=== PATIENT | female | born 1965 | race Native Hawaiian/Other Pacific Islander ===

== ENCOUNTER 2016-09-27 09:36 | Outpatient (CLI) | payer OTHER ==
[~2016-09-27 09:36] MED LIST: ATEN50TA36 PO; CIPRO500 MG PO; HYDR25TA60 PO; Z-PAK PO
== END 2016-09-27 20:00 | disposition home or self-care (01) ==
LOC: RAD 09:36
DX: C34.90 Malignant neoplasm of unspecified part of unspecified bronchus or lung (principal)

== ENCOUNTER 2016-10-11 08:34 | Outpatient (CLI) | payer OTHER | END 2016-10-11 19:04 | disposition home or self-care (01) | LOC: MAMMO 08:34 | DX: Z12.31 Encounter for screening mammogram for malignant neoplasm of breast (principal); Z13.820 Encounter for screening for osteoporosis | CPT/HCPCS: G0202-TC ==

== ENCOUNTER 2017-12-15 09:39 | Outpatient (CLI) | payer OTHER ==
[2017-12-15 10:27] LABS: PLATELET COUNT 221 K/uL (152-353)
[2017-12-15 10:50] LABS: POTASSIUM 4.6 mmol/L (3.6-5.2)
== END 2017-12-15 19:57 | disposition home or self-care (01) ==
LOC: LABW 09:39
PROVIDERS: Internal Medicine
DX: Z00.00 Encounter for general adult medical examination without abnormal findings (principal); E11.9 Type 2 diabetes mellitus without complications; Z85.118 Personal history of other malignant neoplasm of bronchus and lung
CPT/HCPCS: 36415; 80053; 80061; 81000; 82043; 82306; 82570; 83036; 84443; 85027